=== PATIENT | female | born 1965 | race African-American/Black ===

== ENCOUNTER 2016-04-29 18:55 | Emergency (ER) | payer OTHER ==
[~2016-04-29] VITALS: Ht 165.1 cm; Wt 88.0 kg
[2016-04-29 19:47] VITALS: BP 126/75
[2016-04-29] MEDS ORDERED: cefTRIAXone SOD 1,000 MG VL IM ONE (20:00)
[2016-04-29] MEDS ORDERED: LIDOCAINE 2%HCL (LOCAL ANESTH.) INJ 20ML MDV ONE (20:03)
== END 2016-04-29 20:37 | disposition home or self-care (01) ==
LOC: ER 19:02
DX: J03.90 Acute tonsillitis, unspecified (principal); J20.9 Acute bronchitis, unspecified; F17.210 Nicotine dependence, cigarettes, uncomplicated
CPT/HCPCS: 96372; 99283; J0696

== ENCOUNTER 2016-05-08 09:26 | Emergency (ER) | payer OTHER ==
[2016-05-08 10:27] LABS: Urine Bilirubin Negative (Negative); Urine Color Yellow (Yellow); Urine Glucose Normal (Normal); Urine Ketone Negative (Negative); Urine Mucus FEW (None Seen); Urine Nitrite Negative (Negative); Urine RBC 19 /hpf (0 - 4); Urine Squamous Epithelial Cell FEW /hpf (<5); Urine Urobilinogen Normal (Negative)
[2016-05-08 10:34] LABS: Basophils # (auto) 0.1 uL; Basophils % (auto) 1.9 % (0.0-2.0); Eosinophils # (auto) 0.1 uL; Eosinophils % (auto) 2.3 % (0.0-7.0); Hematocrit 39.9 % (36.0-46.0); Hemoglobin 13.5 g/dL (12.2-16.2); Lymphocytes # (auto) 1.6 uL; Mean Corpuscular Hemoglobin 32.3 pg (28.0-32.0); Mean Corpuscular Hgb Conc. 33.9 g/dL (32.0-36.0); Mean Corpuscular Volume 95.2 fL (80.0-100.0); Mean Platelet Volume 8.4 fL (7.4-10.4); Monocytes # (auto) 0.2 uL; Neutrophils # (auto) 3.8 uL; Neutrophils % (auto) 64.8 % (37.0-80.0); Platelet Count (auto) 386 10^3/uL (140-450); Red Cell Distribution Width 12.4 % (11.6-16.0); White Blood Cell 5.9 10^3/uL (4.4-10.8)
[2016-05-08 10:39] LABS: Urine Blood 3+ /uL (Negative)
[2016-05-08 10:48] LABS: Albumin 3.6 g/dL (3.4-5.0); Alkaline Phosphatase 94 U/L (45-117); Anion Gap 9 (5-15); Aspartate Aminotransferase 17 U/L (15-37); BUN/Creatinine Ratio 8.7; Bilirubin, Total 0.3 mg/dL (0.2-1.0); Blood Urea Nitrogen 8 mg/dL (7-18); Carbon Dioxide 22 mmol/L (21-32); Chloride 109 mmol/L (98-107); GFR African American 83 mL/min; GFR Non-African American 69 mL/min; Glucose 154 mg/dL (74-106); Potassium 3.5 mmol/L (3.5-5.1); Sodium 140 mmol/L (136-145); Total Protein 7.5 g/dL (6.4-8.2)
[2016-05-08 11:58] VITALS: BP 137/81
== END 2016-05-08 12:20 | disposition home or self-care (01) ==
LOC: ER 09:26
DX: J20.9 Acute bronchitis, unspecified (principal); N39.0 Urinary tract infection, site not specified
CPT/HCPCS: 36415; 71020; 80053; 81001; 81025; 83735; 84484; 85025; 85379; 93005; 94761